=== PATIENT | female | born 1980 | race Two or more races ===

== ENCOUNTER 2018-10-12 06:06 | Day surgery (SDC) | payer OTHER ==
--- NOTE | 2018-10-11 20:34 | PREOPHP ---
DATE OF ADMISSION: 10/12/2018 The patient is having a surgical procedure done on 10/12/2018. HISTORY OF PRESENT ILLNESS: This is a 38-year-old female, 2, para 2. The patient with an IU D that has been lost for a while and with a history of a fibroid uterus. The patient had an ultrasou nd that revealed that the IUD was embedded, and she is scheduled for a D and C and excision of IUD. PAST HISTORY: Normal. REVIEW OF SYSTEMS: Also negative for any major medical antecedents or surgical antecedents. SOCIAL HISTORY: She does not drink or smoke, and there are no endocrinologic problems. No history o f drug addiction. FAMILY HISTORY: Also noncontributory. ALLERGIES. SHE HAS NO ALLERGIES. MEDICATIONS: She is on no medications. PHYSICAL EXAMINATION: VITAL SIGNS: Stable. Blood pressure is 108/70, pulse is 80, respirations 16. She is 5 feet 8 inche s. She weighs 186 pounds. HEAD AND NECK: Normal. BREASTS: Soft, nontender, no masses. CHEST: Clear. HEART: Normal sinus rhythm. LUNGS: Clear. ABDOMEN: Soft, nontender, no masses. PELVIC: External genitalia is normal. The cervix is normal. The string of the IUD is not visible. The uterus is retroverted, flexed with an early fibroid. Palpation of the adnexa is negative. EXTREMITIES: Normal. DIAGNOSES: Lost intrauterine device, fibroid uterus. PLAN: She is having a D and C, excision of embedded IUD. She has been advised of the possible risks and possible complications of the procedure with her alternatives and options. Written information was provided. She had no more questions and agreed to go ahead with the procedure with full understa nding and no more questions. Dictated By: ALESIA JOHNSON/NTS Conf#: [id number] DID#: [id number]
[~2018-10-12] VITALS: Ht 172.7 cm; Wt 80.1 kg
[2018-10-12] VITALS (12 sets, daily range): BP systolic 100–136; BP diastolic 51–83; PULSE 56–104; RESP 10–22; Ht 172.7 cm; Wt 80.1 kg
--- NOTE | 2018-10-12 07:09 | PREAC ---
Date/Time of Note Date/Time of Note DATE: 10/12/18 TIME: 07:08 Anesthesia Eval and Record Evaluation Time Pre-Procedure Interview DATE: 10/12/18 TIME: 07:08 Age 38 Sex female NPO: 8 hrs Preoperative diagnosis dc Planned procedure dc Past Medical History Past Medical History: None Surgery & Anesthesia Issues No known issue Meds Anticoagulation: No Beta Mana within 24 hr: No Reason Beta Mana not given: Pt. not on B-Mana No Active Prescriptions or Reported Meds Meds reviewed: Yes Allergies Coded Allergies: No Known Allergy (Unverified , 10/12/18) Allergies Reviewed: Yes Labs/Studies Labs Reviewed: Reviewed by anesthesiologist test: N/A Pre-procedure Exam Airway: Adequate mouth opening, Adequate thyromental dist Mallampati: Mallampati IV Teeth: Normal Lung: Normal Heart: Normal ASA Physical Status ASA physical status: 1 Emergency: None Pre-operative Attestations Prior to commencing anesthesia and surgery, the patient was re-evaluated, there was verification of: *The patient's identity *The results of appropriate recent lab work and preoperative vital signs *The above evaluation not changing prior to induction *Anesthetic plan, risk benefits, alternative and complications discussed with patient/family; questions answered; patient/family understands, accepts and wishes to proceed. FRANCIS GOODMAN DO Oct 12, 2018 07:09
[2018-10-12] MEDS ORDERED: PROPOFOL 20 ML ONE (07:19)
[2018-10-12] MEDS ORDERED: MIDAZOLAM 1 MG/ML 2 ML INJ ONE (07:19)
[2018-10-12] MEDS ORDERED: LIDOCAINE 1% (MDV) 20 ML INJ ONE (07:19)
[2018-10-12] MEDS ORDERED: CEFAZOLIN 1 GM INJ ONE (07:27)
[2018-10-12] MEDS ORDERED: ONDANSETRON 4 MG INJ ONE (07:27)
[2018-10-12] MEDS ORDERED: MEPERIDINE 25 MG INJ IV PRN (07:30)
[2018-10-12] MEDS ORDERED: HYDROmorphONE 1 MG/5 ML IV SYRINGE IV PRN ×3 (07:30)
[2018-10-12] MEDS ORDERED: ONDANSETRON 4 MG INJ IV PRN (07:30)
[2018-10-12] MEDS ORDERED: DIPHENHYDRAMINE 50 MG INJ IV PRN (07:30)
[2018-10-12] MEDS ORDERED: FENTAnyl 50 MCG/ML VIAL ONE (07:38)
[2018-10-12] MEDS ORDERED: OXYTOCIN 10 UNIT INJ ONE (07:45)
[2018-10-12] MEDS ORDERED: SILVER NITRATE SWAB ONE (07:50)
--- NOTE | 2018-10-12 08:08 | PAC ---
Date/Time of Note Date/Time of Note DATE: 10/12/18 TIME: 08:08 Post-Anesthesia Notes Post-Anesthesia Note Last documented vital signs 102/57 75 100% 18 98.3 Activity: WNL Respiratory function: WNL Cardiovascular function: WNL Mental status: Baseline Pain reasonably controlled: Yes Hydration appropriate: Yes Nausea/Vomiting absent: Yes FRANCIS GOODMAN DO Oct 12, 2018 08:08
[2018-10-12] MEDS ORDERED: KETOROLAC 30 MG INJ IM ONE (08:30)
--- NOTE | 2018-10-12 08:32 | SIPON ---
Date/Time of Note Date/Time of Note DATE: 10/12/18 TIME: 08:30 Operative Report Preoperative Diagnosis Lost IUD Embedded IUD Abnormal uterine bleeding Fibroid uterus Postoperative Diagnosis same IUD perforating cervix Operation/Procedure Performed Fractional D&C Excision of IUD and fragments of IUD Surgeon see signature line sourcing assistant None Anesthesia: general Estimated blood loss: 0 - 10 ml's Transfusion Required none Specimen IUD and uterine contents Grafts/Implants none Complications none ALESIA MOHAN MD Oct 12, 2018 08:32
--- NOTE | 2018-10-12 09:12 | OPR ---
DATE OF OPERATION: 10/12/2018 OPERATION PERFORMED: Fractional dilation and curettage, excision of IUD and fragments of IUD. PREOPERATIVE DIAGNOSIS: Lost IUD, embedded IUD, abnormal uterine bleeding, fibroid uterus. POSTOPERATIVE DIAGNOSIS: Lost IUD, embedded IUD, abnormal uterine bleeding, fibroid uterus. IUD per forating cervix. ANESTHESIOLOGIST: Dr. Lazo. DESCRIPTION OF PROCEDURE: The patient was given general anesthesia, placed in the lithotomy position . The perineal and vaginal area were prepped and draped and confirmatory examination under anesthesi a revealed that there was some marked uterine prolapse and bladder prolapse to a grade II to III. Th e uterus was retroverted with early fibroids condition of about 8 weeks' size. Adnexa were nonpalpab le. The vaginal speculum was applied. The cervix was held with a forceps. Endocervical curettage w as done. The uterus was sounded to a depth of 10 cm and dilated with Hegar dilators. The IUD was gr abbed with a forceps and came out easily with one part missing and we searched the cavity for another part and it felt that it was perforating the cervix, so I put another instrument. I grabbed that pi meghana and pulled it out and the piece matched the missing part on the IUD. The cavity was scraped down anteriorly, posteriorly, laterally and in the fundus and control of the bleeding was done with Pitoc in and the uterus contracted. The tenaculum area was bleeding slightly. Silver nitrate was applied and the patient tolerated the procedure well and left the OR awake and stable. Sponge counts and ins trument counts were correct and intravenous antibiotics were given for prophylaxis. Dictated By: ALESIA JOHNSON/TONEY Conf#: [id number] DID#: [id number] CC: ALESIA MOHAN MD;*EndCC*
--- NOTE | 2018-10-13 16:48 | RADRPT ---
Vent Rate: 56 bpm RR Interval: 1076 msec MO Interval: 134 msec QRS Duration: 88 msec QT Interval: 417 msec QTC Interval: 402 msec P-R-T Mchenry: 61 - 75 - 61 degrees Sinus rhythm...normal P axis, V-rate 50- 99 Electronically Signed By: Jose A Cardenas
== END 2018-10-12 10:18 | disposition home or self-care (01) ==
LOC: SDS 06:06
PROVIDERS: ATTEND Obstetrics & Gynecology
DX: T83.89XA Other specified complication of genitourinary prosthetic devices, implants and grafts, initial encounter (principal); Y76.8 Miscellaneous obstetric and gynecological devices associated with adverse incidents, not elsewhere classified; Y83.8 Other surgical procedures as the cause of abnormal reaction of the patient, or of later complication, without mention of misadventure at the time of the procedure; D25.9 Leiomyoma of uterus, unspecified
CPT/HCPCS: 58301; 84703; 93005; J0690; J1170; J1885; J2175; J2250; J2405; J2590; J3010; Z7512; Z7610; 88300; 88305